=== PATIENT | male | born 1940 | race Caucasian/White ===

== ENCOUNTER → 2019-09-09 | Outpatient (CLI) | payer BC, MEDICARE ==
--- NOTE | 2019-09-09 09:53 | KCIC ---
MR of the left knee HISTORY: Left knee pain after a fall. Severe pain and swelling. TECHNIQUE: Routine multiplanar sequences are obtained. FINDINGS: Signal identified within the posterior horn of the medial meniscus, with only equivocal surface violation, compatible with a possible degenerative tear. If so, the tear is mild. Tear of the posterior horn of the lateral meniscus, appears contiguous with the Wrisberg ligament attachment. This appears to have a radial and longitudinal components. Anterior and posterior cruciate ligaments are intact. Medial collateral ligament is intact. Iliotibial band unremarkable. Fibular collateral ligament, biceps femoris tendon and popliteus tendon are intact. The extensor mechanism is intact. Small joint effusion. Flat subcutaneous fluid collection located along the anterior and lateral lower patellar tendon, measures 4.0 cm wide by 0.5 cm depth by 3.5 cm height. This would most commonly represents bursitis. Could represent hematoma if there is been trauma. Could be an abscess if there are clinical signs of infection. Severe chondral thinning of the patella. At least mild smooth thinning at medial and lateral compartment articular cartilage without focal defect. No acute fracture. No aggressive bone destruction. Diffuse subcutaneous edema about the knee. Mild disorganized fluid tracking along the posterior knee. There is some focal fatty signal within the medial gastrocnemius, likely a small lipoma versus geographic fatty atrophy. IMPRESSION: 1. Lateral meniscal tear. 2. Equivocal signal within the posterior horn the medial meniscus, compatible with a possible mild tear. 3. Flat small prepatellar fluid collection, may represent bursitis but small hematoma or abscess could be considered in the appropriate clinical setting. Electronically signed by: Marcial Mensah MD (09/09/2019 9:50 AM) [id number]
== END ==
LOC: KCIC MRI 07:59
PROVIDERS: ATTEND Family Medicine
DX: S83.282A Other tear of lateral meniscus, current injury, left knee, initial encounter (principal); M25.462 Effusion, left knee; W19.XXXA Unspecified fall, initial encounter; Y93.89 Activity, other specified; Y92.89 Other specified places as the place of occurrence of the external cause; Y99.8 Other external cause status
CPT/HCPCS: 73721

== ENCOUNTER → 2019-12-28 | Outpatient (CLI) | payer MEDICARE, BC ==
[~2019-12-28] MED LIST: ZOLPIDEM 5 MG TABLET. PO ONE
--- NOTE | 2019-12-29 12:14 | SLEEP ---
DATE OF STUDY: 12/28/2019 SLEEP STUDY ATTENDING PHYSICIAN: Patrice Medrano MD The patient is a 79 years old, who weighs 240 pounds with a BMI of 34. The patient's Deal score was 14. The patient underwent split night study performed at [facility]. During the night study, the patient spent 415 minutes in the bed and slept for 195 minutes with a low sleep efficiency of 47%. Sleep latency was 23 minutes with a REM latency of 30 minutes. Sleep architecture showed increased stage 1 sleep, normal stage 2 sleep, increased slow wave and reduced REM sleep. During the initial diagnostic portion of the study, the patient slept for 81 minutes. During that time, the patient had 20 obstructive apneas, 23 mixed apneas, 9 central apneas and 48 hypopneas. The patient's AHI was 74 per hour with a REM AHI of 84 per hour and a supine AHI of 34 per hour. EKG monitoring revealed an average heart rate of 89 beats per minute, no sustained arrhythmias observed. Nocturnal oximetry study revealed a mean oxygen saturation of 96% with the lowest of 74%. A 7.5% of time oxygen saturation remained between 80 and 89%. PLMS were seen at an index of 34 per hour and 2 per hour caused EEG arousals. The patient met the criteria for CPAP initiation. However, the patient did not tolerate the CPAP well. It was started at 7 cm water and titrated up to 15 cm water. At the final pressure, the patient slept for 45 minutes. The patient's AHI was still 12 per hour. Oxygen saturation remained above 89%. The patient constantly removed the PAP devices throughout the night. IMPRESSION: 1. Severe obstructive sleep apnea at an apnea-hypopnea index of 74 per hour. 2. Nocturnal hypoxia secondary to obstructive sleep apnea, but resolved with CPAP. 3. Moderate periodic limb movements. RECOMMENDATIONS: 1. Optimum CPAP pressure was not achieved due to reduced sleep efficiency and the patient's intolerance. I would recommend the patient should be desensitized to PAP therapy and should be placed on an auto-CPAP at a pressure minimum of 5 cm water and maximum of 20 cm water. 2. The patient should follow up in 4-6 weeks after being on CPAP to assess compliance and to document clinical improvement and to assess the efficacy of CPAP. 3. Weight loss is strongly advised. 4. Avoid [employer] depressants. 5. Cautioned regarding driving until symptoms of sleep apnea resolve with the use of CPAP. RADHA THORNE MD DR: MARC/kiah JOB#: [id number] / [id number] PATRICE Mims MD [facility]
== END | disposition home or self-care (01) ==
LOC: RT 18:50
PROVIDERS: ATTEND Family Medicine
DX: G47.33 Obstructive sleep apnea (adult) (pediatric) (principal); G47.34 Idiopathic sleep related nonobstructive alveolar hypoventilation; G47.61 Periodic limb movement disorder; R53.83 Other fatigue
CPT/HCPCS: 95810

== ENCOUNTER 2020-12-12 22:26 | Inpatient (IN) | payer BC, MEDICARE ==
[~2020-12-12] VITALS: Ht 177.8 cm; Wt 115.0 kg
--- NOTE | 2020-12-12 22:26 | NUR ---
Patient admitted to room 438 per EMS from [facility] for SBO. Patient oriented to room, call light, bed. Call light in reach. Patient verbalized understanding.
--- NOTE | 2020-12-12 22:27 | NUR ---
Page to Dr. Hernandez's service regarding admit orders. Jessica at service stated she would notify Dr. Hernandez.
--- NOTE | 2020-12-12 23:37 | NUR ---
Informed Patient of order for NG placement. Patient refused NG. Patient stated "I don't want it tonight, maybe tomorrow."
[2020-12-12] MEDS ORDERED: diphenhydrAMINE 50 MG/ML VIAL IVP PRN (23:45)
[2020-12-12] MEDS ORDERED: ONDANSETRON PF 4 MG/2 ML VIAL. IVP PRN (23:45)
[2020-12-12] MEDS ORDERED: MORPHINE SULFATE 4 MG/ML INJ. IV PRN (23:45)
[2020-12-13] MEDS: IV NORMAL SALINE 1000ML BAG 1,000 ML IV SCH ×2 (00:31→13:05)
[2020-12-13 07:15] VITALS: BP 133/58
--- NOTE | 2020-12-13 07:57 | PDOC1 ---
History and Physical Date of Admission Date of Admission DATE: 12/13/20 TIME: 07:33 Identification/Chief Complaint Chief Complaint Abdominal pain Source Source: Chart review History of Present Illness History of Present Illness Patient is a 80-year-old male with past medical history dementia, CHF, GERD, HLD, who presents with a transfer from [facility] ED with complaint of worsening abdominal pain that peaked yesterday. Some history is limited due to baseline dementia. He reports generalized abdominal pain that has been waxing and waning over the past week, but some improvement with passing flatus. Labs at [facility] showed WBC 11.2, CBG 127. CT abdomen showed multiple dilated small bowel loops identified in the mid abdomen with transition point in the mid abdomen, consistent with small bowel obstruction. Case was discussed by [facility] ED physician with general surgery, Dr. Hassan. He recommended NG tube placement and [facility]. Will admit patient for further medical management. Past Medical History Past Medical History Dementia, CHF, GERD, HLD, arthritis Past Surgical History Past Surgical History: Appendectomy Family History Family History: Family History Unknown (Reviewed with patient. but family history is unknown) Social History Smoke: No ALCOHOL: none Drugs: None Current Medications Current Medications Current Medications Morphine Sulfate (Morphine Sulfate) 4 mg PRN Q2HR PRN IV PAIN; Start 12/12/20 at 23:45 Ondansetron HCl (Zofran) 4 mg PRN Q6HRS PRN IVP NAUSEA/VOMITING; Start 12/12/20 at 23:45 Lorazepam (Ativan Inj) 1 mg PRN Q4HRS PRN IVP ANXIETY / AGITATION; Start 12/12/20 at 23:45 Sodium Chloride 1,000 ml @ 75 mls/hr [id number] IV Last administered on 12/13/20at 00:31; Start 12/12/20 at 23:45 Diphenhydramine HCl (Benadryl) 25 mg PRN QHS PRN IVP insomnia; Start 12/12/20 at 23:45 Allergies Allergies: Coded Allergies: No Known Drug Allergies (Unverified , 12/28/19) ROS Review of System GENERAL: No history of weight change, weakness or fevers. SKIN: No bruising, hair changes or rashes. EYES: No blurred, double or loss of vision. NOSE AND THROAT: No history of nosebleeds, hoarseness or sore throat. HEART: Denies chest pain, denies palpitations. LUNGS: Denies cough, hemoptysis, wheezing or shortness of breath. GASTROINTESTINAL: Abdominal pain. Denies vomiting. GENITOURINARY: Denies dysuria, frequency, urgency, hematuria. NEUROLOGIC: Denies history of numbness, tingling, tremor or weakness. PSYCHIATRIC: Denies anxiety, denies depression. ENDOCRINE: No history of heat or cold intolerance, polyuria or polydipsia. EXTREMITIES: Denies muscle weakness, joint pain, pain on walking or stiffness. Physical Exam Physical Exam General: Alert, Oriented, Cooperative, No acute distress HEENT: NG tube in place, PERRLA, EOMI Lungs: Clear to auscultation, Normal air movement Heart: RRR, no murmurs Cardiovascular: S1, S2 Abdomen: Bowel sounds normal, soft and mildly distended, generalized tenderness with guarding present, no rebound, no masses, no pulsatile masses. Extremities: No clubbing, No cyanosis Skin: No rashes, No significant lesion Neuro: Normal speech, Normal tone, Sensation intact Psych/Mental Status: Mental status NL, Mood NL Vitals Vitals Vital Signs Date Time Temp Pulse Resp B/P (MAP) Pulse Ox O2 Delivery O2 Flow Rate FiO2 12/12/20 22:40 Room Air Images Images Examination: CT of the abdomen pelvis with IV contrast HISTORY: History of generalized abdominal pain COMPARISON: None available Technique: Axial CT images of the abdomen pelvis were performed with IV contrast. Coronal and sagittal reformats are performed. Exposure: One or more of the following individualized dose reduction techniques were utilized for this examination: 1. Automated exposure control 2. Adjustment of the mA and/or kV according to patient size 3. Use of iterative reconstruction technique. FINDINGS: The bibasilar lungs are clear. No evidence of free air identified in the abdomen. Mild degree attenuation noted in the liver likely hepatic steatosis. Calcified granulomas identified in the spleen. Cholecystectomy changes. The stomach is mildly distended. The visualized pancreas grossly appears unremarkable Multiple dilated small bowel loops identified in the mid abdomen with transition point in the mid abdomen best visualized on series 2 image 58. The distal small bowel loops are collapsed. Feces and gas noted in the colon. Two urinary bladder diverticulum identified posterior lateral urinary bladder. Small cystic structure identified in the right kidney measuring 8 mm and a 1.6 cm cystic structure identified in the left kidney measuring 56 Hounsfield units could be hyperdense cysts or cystic lesions.Mild aortic atherosclerosis. Moderate degenerative changes thoracolumbar spine. IMPRESSION: 1. Multiple dilated small bowel loops identified in the mid abdomen with transition point in the mid abdomen. The distal small bowel loops are collapsed. Findings are consistent with small bowel obstruction. 2. Small cystic structure identified in the right kidney measuring 8 mm and a 1.6 cm cystic structure identified in the left kidney measuring 56 Hounsfield units could be hyperdense cysts or cystic lesions. Follow-up nonemergent ultrasound kidneys can be considered. 3. Urinary bladder diverticula. Electronically signed by: Walter Smith MD (12/12/2020 6:37 PM) [id number] VTE Prophylaxis Ordered VTE Prophylaxis Devices: No VTE Pharmacological Prophylaxi: Yes Assessment/Plan Assessment/Plan SBO Plan: Consultation placed to general surgery NG tube apparently difficulty place Patient refused NG tube here at [place] Will place consultation to GI Will obtain small bowel follow-through IV medication and antiemetics FEN - NPO PPX - Heparin FULL CODE Dispo - inpatient for above Patient names his as surrogate decision-maker Justifications for Admission Other Justification KAYCE ALVAREZ MD Dec 13, 2020 07:57
[2020-12-13] MEDS ORDERED: MAGNESIUM HYDROXIDE 2,400 MG/30 ML ORAL.SUSP. PO PRN (08:00)
[2020-12-13] MEDS ORDERED: ONDANSETRON PF 4 MG/2 ML VIAL. IVP PRN (08:00)
[2020-12-13] MEDS ORDERED: hydrALAZINE 20 MG/ML VIAL. IVP PRN (08:00)
[2020-12-13] MEDS ORDERED: PROCHLORPERAZINE 10 MG/2 ML VIAL. IVP PRN (08:00)
[2020-12-13] MEDS ORDERED: ACETAMINOPHEN 325 MG TABLET. PO PRN (08:00)
[2020-12-13] MEDS ORDERED: CALCIUM CARBONATE 500 MG TAB.CHEW PO PRN (08:00)
[2020-12-13] MEDS ORDERED: ZOLPIDEM 5 MG TABLET. PO PRN (08:00)
[2020-12-13] MEDS ORDERED: MAG HYDROX/ALUMINUM HYD/SIMETH 30 ML ORAL.SUSP PO PRN (08:00)
[2020-12-13] MEDS ORDERED: PANTOPRAZOLE IV PUSH 40 MG VIAL. IVP PRN (08:15)
[2020-12-13] MEDS ORDERED: FAMOTIDINE 20 MG/2 ML VIAL IVP PRN (08:15)
--- NOTE | 2020-12-13 09:03 | PDOC2 ---
GI CONSULT Date of Service: DATE: 12/13/20 TIME: 09:02 Reason For Consult: SBO HPI: HPI: 80 y/o male w/ h/o dementia sent from [facility]. Evaluated there for abdominal pain (apparently three visits in [address] CT showed SBO. This morning he reports his abdomen feels okay. "It usually feels fine in the morning but by the end of yesterday I thought I was going to ." Indicates pain was diffuse. Denies reflux, dysphagia, diarrhea, bleeding, and weight loss. 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 Doesn't remember if he's ever had an EGD or colonoscopy. CT notes cholecystectomy and hepatic steatosis, also urinary bladder diverticula. Reviewed chart - NGT recommended - ?he declined? No med list available for review. PMH: PMH: per chart: dementia, CHF, HLD, GERD appendectomy FH: Family History: No pertinent hx Social History: Smoke: No ALCOHOL: none Drugs: None ROS: Limited history, see HPI. Vitals: Vitals: Vital Signs Date Time Temp Pulse Resp B/P (MAP) Pulse Ox O2 Delivery O2 Flow Rate FiO2 12/13/20 07:15 98.2 88 20 133/58 (83) 94 Room Air 98.2 Labs: Labs: see [facility] - pending here so far Allergies: Coded Allergies: No Known Drug Allergies (Unverified , 12/28/19) Medications: Current Medications Medications (Trade) Dose Ordered Sig/Hi Route PRN Reason Start Time Stop Time Status Last Admin Dose Admin Sodium Chloride 1,000 ml @ 75 mls/hr [id number] IV 12/12/20 23:45 12/13/20 00:31 Imaging: Imaging: see [facility] records PE: GEN: NAD HEENT: Atraumatic, PERRL LUNGS: CTAB HEART: RRR ABD: large, soft, not particularly tender, maybe a gurgle or two EXTREMITY: trace BLE edema SKIN: No rashes, no jaundice NEURO/PSYCH: A & O 3, forgetful A/P: A/P: SBO S/p cholecystectomy Hepatic steatosis Rapid COVID negative Dementia -- Tells me he's agreeable to NGT placement now. Note he has SBS ordered - await this and surgery thoughts. Agree w/ IV PPI. JAMES VELEZ Dec 13, 2020 09:03
[2020-12-13 09:08] LABS: HEMATOCRIT 41.3 % (39.0-53.0); RED BLOOD COUNT 4.24 x10^6/uL (4.30-5.70); RED CELL DISTRIBUTION WIDTH 14.3 % (11.5-14.5); WHITE BLOOD COUNT 9.4 x10^3/uL (4.0-11.0)
[2020-12-13 09:23] LABS: CALCIUM 7.8 mg/dL (8.5-10.1); GFR 71.9; POTASSIUM 3.4 mmol/L (3.5-5.1); TOTAL PROTEIN 6.1 g/dL (6.4-8.2)
[2020-12-13] MEDS ORDERED: IOHEXOL 300 MG/ML 100ML VIAL. PO ONE (10:00)
[2020-12-13] MEDS ORDERED: BARIUM SULFATE 60% 355 ML SUSP PO ONE (10:00)
--- NOTE | 2020-12-13 10:12 | NUR ---
SW following. Discussed with RN, pt from home, room air, NPO. GI and Surgery following. Pt now agreeable to NG placement. SW will continue to follow.
[2020-12-13] MEDS ORDERED: CONTRAST GIVEN. MC PRN (10:15)
--- NOTE | 2020-12-13 11:40 | RAD ---
EXAM: Small bowel follow-through exam. HISTORY: Small bowel obstruction. TECHNIQUE: A car escort image of the abdomen was obtained prior to oral administration of water subtle con trast. Serial overhead images were then obtained opacified the entire small bowel. COMPARISON: CT performed 12/12/2020. FINDINGS: The car escort image of the abdomen demonstrates contrast within the urinary bladder due to a re cent contrast-enhanced CT. There is outpouching along the superior and inferior left lateral aspects of the urinary bladder due to bladder diverticula. There are distended air-filled loops of small juma l within the midabdomen primarily to the left of midline. This is similar in caliber compared to the CT performed one day prior. There are cholecystectomy clips. The images obtained following the admini stration of contrast demonstrate a small amount of reflux within the distal esophagus on the initial image. The gastric configuration and mucosal are unremarkable. There is early emptying of the stomach into loops of small bowel. There are distended loops of small bowel throughout the midabdomen primar sil to the left of midline on the 20 minute image. There is a gradual transition to relatively decomp ressed small bowel loops within the right abdomen and there is contrast within the colon by 40 minute s. No stricture, extravasation, fistula or mucosal lesion is seen. IMPRESSION: 1. Dilated loops of small bowel within the midabdomen primarily to left of midline, similar in calibe r compared to the CT performed one day prior. There is a gradual transition to relatively decompresse d distal small bowel loops within the right abdomen. No convincing focal transition point is seen and the distal small bowel loops are less decompressed compared to the CT, favoring complete to near com plete resolution of previously demonstrated obstruction. 2. Normal small bowel transit time of less than 40 minutes. 3. No evidence of a stricture, extravasation, fistula or mucosal lesion. 4. Small amount of incidental gastroesophageal reflux. Electronically signed by: Delia Mack MD (12/13/2020 11:37 AM) [id number]
[2020-12-13] MEDS: HEPARIN for SUB-Q USE 5,000 UNIT/ML VIAL. SQ SCH ×2 (12:05→20:44)
[2020-12-13 12:07] VITALS: BP 129/61
--- NOTE | 2020-12-13 12:41 | PDOC2 ---
CONSULT Date of Consult Date of Consult DATE: 12/13/20 TIME: 12:36 Reason for Consult Reason for Consult: IPC Referring Physician Referring Physician: ER Identification/Chief Complaint Chief Complaint abdominal pain Source Source: Chart review, Patient History of Present Illness Reason for Visit: multiple Er visits in last few days, symptoms ranging from leg swelling, SOA, abdominal pain. Ct at [facility] concern for SBO. underwent SBFT, no obstruction, passing the contrast rectally Past Medical History Cardiovascular: CHF, Hyperlipidemia GI: GERD Past Surgical History Past Surgical History: Appendectomy Family History Family History: Family History Unknown (Reviewed with patient. but family history is unknown) Social History No ALCOHOL: none Drugs: None Current Medications Current Medications Current Medications Morphine Sulfate (Morphine Sulfate) 4 mg PRN Q2HR PRN IV PAIN; Start 12/12/20 at 23:45 Ondansetron HCl (Zofran) 4 mg PRN Q6HRS PRN IVP NAUSEA/VOMITING; Start 12/12/20 at 23:45 Lorazepam (Ativan Inj) 1 mg PRN Q4HRS PRN IVP ANXIETY / AGITATION; Start 12/12/20 at 23:45 Sodium Chloride 1,000 ml @ 75 mls/hr [id number] IV Last administered on 12/13/20at 00:31; Start 12/12/20 at 23:45 Diphenhydramine HCl (Benadryl) 25 mg PRN QHS PRN IVP insomnia; Start 12/12/20 at 23:45 Hydralazine HCl (Apresoline Inj) 10 mg PRN Q4HRS PRN IVP ELEVATED BP, SEE COMMENTS; Start 12/13/20 at 08:00 Ondansetron HCl (Zofran) 4 mg PRN Q6HRS PRN IVP NAUSEA/VOMITING; Start 12/13/20 at 08:00; Status UNV Prochlorperazine Edisylate (Compazine) 10 mg PRN Q6HRS PRN IVP NAUSEA/VOMITING, 2nd CHOICE; Start 12/13/20 at 08:00 Al Hydroxide/Mg Hydroxide (Mylanta Plus Xs) 30 ml PRN Q3HRS PRN PO HEARTBURN / GAS; Start 12/13/20 at 08:00 Calcium Carbonate/ Glycine (Tums) 500 mg PRN Q3HRS PRN PO UPSET STOMACH; Start 12/13/20 at 08:00 Zolpidem Tartrate (Ambien) 5 mg PRN QHS PRN PO INSOMNIA, MAY REPEAT IN 1HR; Start 12/13/20 at 08:00 Acetaminophen (Tylenol) 650 mg PRN Q6HRS PRN PO Headaches, Temp > 101.5F; Start 12/13/20 at 08:00 Magnesium Hydroxide (Milk Of Magnesia) 2,400 mg PRN Q12HR PRN PO CONSTIPATION; Start 12/13/20 at 08:00 Heparin Sodium (Porcine) (Heparin Sodium) 5,000 unit Q12HR SQ Last administered on 12/13/20at 12:05; Start 12/13/20 at 09:00 Famotidine (Pepcid Vial) 20 mg PRN BID PRN IVP HEARTBURN / GAS; Start 12/13/20 at 08:15 Pantoprazole Sodium (PROTONIX VIAL for IV PUSH) 40 mg PRN DAILY PRN IVP HEARTBURN / GAS; Start 12/13/20 at 08:15 Barium Sulfate (Liquid E-Z Paque) 710 ml 1X ONCE PO ; Start 12/13/20 at 10:00; Stop 12/13/20 at 10:01; Status DC Iohexol (Omnipaque 300 Mg/ml) 400 ml 1X ONCE PO Last administered on 12/13/20at 10:07; Start 12/13/20 at 10:00; Stop 12/13/20 at 10:02; Status DC Info (CONTRAST GIVEN -- Rx MONITORING) 1 each PRN DAILY PRN MC SEE COMMENTS; Start 12/13/20 at 10:15; Stop 12/15/20 at 10:14 Allergies Allergies: Coded Allergies: No Known Drug Allergies (Unverified , 12/28/19) ROS General: No: Chills, Other (fevers ) PSYCHOLOGICAL ROS: No: Anxiety, Depression Eyes: No Blurry vision, No Double vision HEENT: No: Heacaches, Sore Throat Hematological and Lymphatic: No: Bleeding Problems, Blood Clots Respiratory: No: Cough, Shortness of breath Cardiovascular: No Chest Pain, No Palpitations Gastrointestinal: Yes Other (see hpi) Genitourinary: No Dysuria, No Hematuria Musculoskeletal: No Joint Pain, No Muscle Pain Neurological: No Impaired Coord/balance, No Numbness/Tingling Skin: No Pruritus, No Rash Physical Exam General: Alert, Cooperative, No acute distress HEENT: Atraumatic, PERRLA Lungs: Clear to auscultation Heart: Regular rate, Normal S1, Normal S2 Abdomen: Soft, Other (nttp, large abdomen ) Extremities: No clubbing, No cyanosis Skin: No rashes, No breakdown Neuro: Normal gait, Normal speech Psych/Mental Status: Mental status NL, Mood NL MUSCULOSKELETAL: No deformity, No swelling Vitals VITALS Vital Signs Date Time Temp Pulse Resp B/P (MAP) Pulse Ox O2 Delivery O2 Flow Rate FiO2 12/13/20 12:07 97.9 80 20 129/61 (83) 95 Room Air 97.9 Labs Labs Laboratory Tests Test 12/13/20 08:25 White Blood Count 9.4 x10^3/uL (4.0-11.0) Red Blood Count 4.24 x10^6/uL (4.30-5.70) Hemoglobin 14.0 g/dL (13.0-17.5) Hematocrit 41.3 % (39.0-53.0) Mean Corpuscular Volume 98 fL (79-100) Mean Corpuscular Hemoglobin 33 pg (25-35) Mean Corpuscular Hemoglobin Concent 34 g/dL (31-37) Red Cell Distribution Width 14.3 % (11.5-14.5) Platelet Count 148 x10^3/uL (140-400) Sodium Level 142 mmol/L (136-145) Potassium Level 3.4 mmol/L (3.5-5.1) Chloride Level 106 mmol/L (98-107) Carbon Dioxide Level 31 mmol/L (21-32) Anion Gap 5 (6-14) Blood Urea Nitrogen 12 mg/dL (8-26) Creatinine 1.0 mg/dL (0.7-1.3) Estimated GFR (Cockcroft-Gault) 71.9 BUN/Creatinine Ratio 12 (6-20) Glucose Level 104 mg/dL (70-99) Calcium Level 7.8 mg/dL (8.5-10.1) Total Bilirubin 1.0 mg/dL (0.2-1.0) Aspartate Amino Transf (AST/SGOT) 11 U/L (15-37) Alanine Aminotransferase (ALT/SGPT) 19 U/L (16-63) Alkaline Phosphatase 54 U/L (46-116) Total Protein 6.1 g/dL (6.4-8.2) Albumin 3.0 g/dL (3.4-5.0) Albumin/Globulin Ratio 1.0 (1.0-1.7) Laboratory Tests Test 12/13/20 08:25 White Blood Count 9.4 x10^3/uL (4.0-11.0) Red Blood Count 4.24 x10^6/uL (4.30-5.70) Hemoglobin 14.0 g/dL (13.0-17.5) Hematocrit 41.3 % (39.0-53.0) Mean Corpuscular Volume 98 fL (79-100) Mean Corpuscular Hemoglobin 33 pg (25-35) Mean Corpuscular Hemoglobin Concent 34 g/dL (31-37) Red Cell Distribution Width 14.3 % (11.5-14.5) Platelet Count 148 x10^3/uL (140-400) Sodium Level 142 mmol/L (136-145) Potassium Level 3.4 mmol/L (3.5-5.1) Chloride Level 106 mmol/L (98-107) Carbon Dioxide Level 31 mmol/L (21-32) Anion Gap 5 (6-14) Blood Urea Nitrogen 12 mg/dL (8-26) Creatinine 1.0 mg/dL (0.7-1.3) Estimated GFR (Cockcroft-Gault) 71.9 BUN/Creatinine Ratio 12 (6-20) Glucose Level 104 mg/dL (70-99) Calcium Level 7.8 mg/dL (8.5-10.1) Total Bilirubin 1.0 mg/dL (0.2-1.0) Aspartate Amino Transf (AST/SGOT) 11 U/L (15-37) Alanine Aminotransferase (ALT/SGPT) 19 U/L (16-63) Alkaline Phosphatase 54 U/L (46-116) Total Protein 6.1 g/dL (6.4-8.2) Albumin 3.0 g/dL (3.4-5.0) Albumin/Globulin Ratio 1.0 (1.0-1.7) Assessment/Plan Assessment/Plan SBO resolving, no obstruction on SBFT, no pain will start clears SILVERIO DE LA PAZ [employer] Dec 13, 2020 12:41
[2020-12-13 15:18] VITALS: BP 128/58
[2020-12-13 19:10] VITALS: BP 128/60
[2020-12-13 23:11] VITALS: BP 123/53
[2020-12-14] MEDS: IV NORMAL SALINE 1000ML BAG 1,000 ML IV SCH ×2 (02:25→08:30)
[2020-12-14 03:16] VITALS: BP 130/54
--- NOTE | 2020-12-14 06:26 | PDOC ---
[employer] PROGRESS NOTE Date of Service DOS: DATE: 12/14/20 TIME: 06:23 Chief Complaint Chief Complaint SBO Mild malnutrition Plan: Consultation placed to general surgery NG tube apparently difficulty place Patient refused NG tube here at [place] Will place consultation to GI Will obtain small bowel follow-through IV medication and antiemetics FEN - NPO PPX - Heparin FULL CODE Dispo - inpatient for above Patient names his as surrogate decision-maker History of Present Illness History of Present Illness Patient is a 80-year-old male with past medical history dementia, CHF, GERD, HLD, who presents with a transfer from [facility] ED with complaint of worsening abdominal pain that peaked yesterday. Some history is limited due to baseline dementia. He reports generalized abdominal pain that has been waxing and waning over the past week, but some improvement with passing flatus. Labs at [facility] showed WBC 11.2, CBG 127. CT abdomen showed multiple dilated small bowel loops identified in the mid abdomen with transition point in the mid abdomen, consistent with small bowel obstruction. Case was discussed by [facility] ED physician with general surgery, Dr. Hassan. He recommended NG tube placement and transfer to [facility]. Will admit patient for further medical management. 12/14: Denies significant pain today. Small bowel follow-through yesterday showed dilated loops of small bowel within the mid-abdomen primarily to left of midline, similar in caliber compared to the CT performed one day prior; gradual transition to relatively decompressed distal small bowel loops within the right abdomen; no convincing focal transition point is seen and the distal small bowel loops are less decompressed compared to the CT, favoring complete to near complete resolution of previously demonstrated obstruction. General surgery and GI following. Will start on clears today. No tenderness on exam. Hopeful to discharge today, which will likely happen if he tolerates clear liquids. Greater than 30 minutes spent managing discharge this patient. Vitals/I&O Vitals/I&O: Vital Signs Date Time Temp Pulse Resp B/P (MAP) Pulse Ox O2 Delivery O2 Flow Rate FiO2 12/14/20 03:16 97.8 71 18 130/54 (79) 94 Room Air 97.8 I & O 12/13/20 12/13/20 12/14/20 15:00 23:00 07:00 Intake Total 0 ml 360 ml Output Total 502 ml Balance 0 ml -142 ml Physical Exam General: Alert, Oriented X3, Cooperative, No acute distress Heart: Regular rate, Normal S1, Normal S2 Lungs: Clear Abdomen: Soft, Other (nttp, large abdomen ) Extremities: No clubbing, No cyanosis Skin: No rashes, No breakdown Labs Labs: Laboratory Tests Test 12/13/20 08:25 White Blood Count 9.4 x10^3/uL (4.0-11.0) Red Blood Count 4.24 x10^6/uL (4.30-5.70) Hemoglobin 14.0 g/dL (13.0-17.5) Hematocrit 41.3 % (39.0-53.0) Mean Corpuscular Volume 98 fL (79-100) Mean Corpuscular Hemoglobin 33 pg (25-35) Mean Corpuscular Hemoglobin Concent 34 g/dL (31-37) Red Cell Distribution Width 14.3 % (11.5-14.5) Platelet Count 148 x10^3/uL (140-400) Sodium Level 142 mmol/L (136-145) Potassium Level 3.4 mmol/L (3.5-5.1) Chloride Level 106 mmol/L (98-107) Carbon Dioxide Level 31 mmol/L (21-32) Anion Gap 5 (6-14) Blood Urea Nitrogen 12 mg/dL (8-26) Creatinine 1.0 mg/dL (0.7-1.3) Estimated GFR (Cockcroft-Gault) 71.9 BUN/Creatinine Ratio 12 (6-20) Glucose Level 104 mg/dL (70-99) Calcium Level 7.8 mg/dL (8.5-10.1) Total Bilirubin 1.0 mg/dL (0.2-1.0) Aspartate Amino Transf (AST/SGOT) 11 U/L (15-37) Alanine Aminotransferase (ALT/SGPT) 19 U/L (16-63) Alkaline Phosphatase 54 U/L (46-116) Total Protein 6.1 g/dL (6.4-8.2) Albumin 3.0 g/dL (3.4-5.0) Albumin/Globulin Ratio 1.0 (1.0-1.7) Comment Review of Relevant I have reviewed the following items familia (where applicable) has been applied. Medications: Current Medications Medications (Trade) Dose Ordered Sig/Hi Route PRN Reason Start Time Stop Time Status Last Admin Dose Admin Heparin Sodium (Porcine) (Heparin Sodium) 5,000 unit Q12HR SQ 12/13/20 09:00 12/13/20 20:44 Iohexol (Omnipaque 300 Mg/ml) 400 ml 1X ONCE PO 12/13/20 10:00 12/13/20 10:02 DC 12/13/20 10:07 Justifications for Admission Other Justification KAYCE ALVAREZ MD Dec 14, 2020 06:25
[2020-12-14 07:15] VITALS: BP 113/61
[2020-12-14] MEDS: HEPARIN for SUB-Q USE 5,000 UNIT/ML VIAL. SQ SCH (08:30)
--- NOTE | 2020-12-14 10:04 | PDOC3 ---
Discharge Summary Visit Information Date of Admission: Dec 13, 2020 Date of Discharge: Dec 14, 2020 Brief Hospital Course Allergies Allergies Coded Allergies Type Severity Reaction Last Updated Verified No Known Drug Allergies 12/28/19 No Vital Signs Vital Signs Date Time Temp Pulse Resp B/P (MAP) Pulse Ox O2 Delivery O2 Flow Rate FiO2 12/14/20 07:15 98.3 70 18 113/61 (78) 96 Room Air 98.3 Lab Results Laboratory Tests Test 12/13/20 08:25 White Blood Count 9.4 x10^3/uL (4.0-11.0) Red Blood Count 4.24 x10^6/uL (4.30-5.70) Hemoglobin 14.0 g/dL (13.0-17.5) Hematocrit 41.3 % (39.0-53.0) Mean Corpuscular Volume 98 fL (79-100) Mean Corpuscular Hemoglobin 33 pg (25-35) Mean Corpuscular Hemoglobin Concent 34 g/dL (31-37) Red Cell Distribution Width 14.3 % (11.5-14.5) Platelet Count 148 x10^3/uL (140-400) Sodium Level 142 mmol/L (136-145) Potassium Level 3.4 mmol/L (3.5-5.1) Chloride Level 106 mmol/L (98-107) Carbon Dioxide Level 31 mmol/L (21-32) Anion Gap 5 (6-14) Blood Urea Nitrogen 12 mg/dL (8-26) Creatinine 1.0 mg/dL (0.7-1.3) Estimated GFR (Cockcroft-Gault) 71.9 BUN/Creatinine Ratio 12 (6-20) Glucose Level 104 mg/dL (70-99) Calcium Level 7.8 mg/dL (8.5-10.1) Total Bilirubin 1.0 mg/dL (0.2-1.0) Aspartate Amino Transf (AST/SGOT) 11 U/L (15-37) Alanine Aminotransferase (ALT/SGPT) 19 U/L (16-63) Alkaline Phosphatase 54 U/L (46-116) Total Protein 6.1 g/dL (6.4-8.2) Albumin 3.0 g/dL (3.4-5.0) Albumin/Globulin Ratio 1.0 (1.0-1.7) Brief Hospital Course Mr. Thomas is a 80 old male who presented with small bowel obstruction. Consultation placed to general surgery and GI. Patient deferred NG tube placement as his symptoms began to resolve spontaneously shortly after admission. Small bowel series with follow-through favoring complete to near complete resolution of previously demonstrated obstruction. He tolerated advancement of his diet well. Discharge home independently. Discharge Information Condition at Discharge: Improved Disposition/Orders: D/C to Home Justicifation of Admission Dx: Justifications for Admission: Justification of Admission Dx: Yes KAYCE ALVAREZ MD Dec 14, 2020 10:04
--- NOTE | 2020-12-14 10:15 | NUR ---
SW following. Discussed with RN, discharge order for home with self care. Pt wanting to go home. RN advised no SW needs.
--- NOTE | 2020-12-14 10:42 | PDOC ---
Date of Service: DATE: 12/14/20 TIME: 10:37 Objective: Objective: Per nurse - pt reported multiple stools overnight and wants to go home. Has DC order. Vital Signs: Vital Signs Date Time Temp Pulse Resp B/P (MAP) Pulse Ox O2 Delivery O2 Flow Rate FiO2 12/14/20 07:15 98.3 70 18 113/61 (78) 96 Room Air 98.3 Imaging: SBS 12/13 IMPRESSION: 1. Dilated loops of small bowel within the midabdomen primarily to left of midline, similar in caliber compared to the CT performed one day prior. There is a gradual transition to relatively decompressed distal small bowel loops within the right abdomen. No convincing focal transition point is seen and the distal small bowel loops are less decompressed compared to the CT, favoring complete to near complete resolution of previously demonstrated obstruction. 2. Normal small bowel transit time of less than 40 minutes. 3. No evidence of a stricture, extravasation, fistula or mucosal lesion. 4. Small amount of incidental gastroesophageal reflux. PE: GEN: attempted to see twice - pt in restroom A/P: SBO - apparently resolved Dementia -- DC plans noted. Justicifation of Admission Dx: Justifications for Admission: Justification of Admission Dx: Yes JAMES VELEZ Dec 14, 2020 10:42
[2020-12-14 10:54] VITALS: BP 133/52
--- NOTE | 2020-12-14 12:45 | NUR ---
Discharge Note: GIOVANNI LAN Discharge instructions and discharge home medications reviewed with Patient and a copy given. All questions have been answered and understanding verbalized. The following instructions and handouts were given: information about diet, medications, activity. Discontinued lines and drains: IV line in right hand removed, catheter tip intact. Patient discharged to home with self care with dolly driver.
== END 2020-12-14 12:45 | disposition home or self-care (01) | DRG 389 ==
LOC: 4 NORTH 22:26
PROVIDERS: ADMIT Family Medicine; ATTEND Family Medicine
DX: K56.609 Unspecified intestinal obstruction, unspecified as to partial versus complete obstruction (principal); E44.1 Mild protein-calorie malnutrition; E78.5 Hyperlipidemia, unspecified; F03.90 Unspecified dementia, unspecified severity, without behavioral disturbance, psychotic disturbance, mood disturbance, and anxiety; I50.9 Heart failure, unspecified; I70.0 Atherosclerosis of aorta; K21.9 Gastro-esophageal reflux disease without esophagitis; K76.0 Fatty (change of) liver, not elsewhere classified; N32.3 Diverticulum of bladder; M19.90 Unspecified osteoarthritis, unspecified site; Z90.49 Acquired absence of other specified parts of digestive tract; Z53.29 Procedure and treatment not carried out because of patient's decision for other reasons
CPT/HCPCS: 36415; 74250; 80053; 85027; J1644; J7030; Q9967; G0378